=== PATIENT | male | born 1990 | race African-American/Black ===

== ENCOUNTER 2018-12-15 15:53 | Emergency (ER) | payer SELFPAY ==
[2018-12-15] MEDS: ONDANSETRON 4 MG INJ IV (16:37)
[2018-12-15 16:38] LABS: ADD MAN DIFF? NO
[2018-12-15] MEDS: LACTATED RINGER'S 1,000 ML IV (16:38)
[2018-12-15 16:42] LABS: BASOPHIL # 0.1 10^3/ul (0.0-0.1); BASOPHILS % 0.6 % (0.0-2.0); EOSINOPHILS # 0.1 10^3/ul (0.0-0.5); HEMATOCRIT 44.6 % (42.0-52.0); HEMOGLOBIN 14.8 g/dl (14.0-18.0); LYMPHOCYTES % 38.7 % (15.0-51.0); MEAN CORPUSCULAR HEMOGLOBIN 29.2 pg (29.0-33.0); MEAN CORPUSCULAR HGB CONC 33.2 g/dl (32.0-37.0); MONOCYTE # 0.7 10^3/ul (0.3-0.9); MONOCYTES % 8.4 % (0.0-11.0); PLATELET COUNT 224 10^3/UL (140-415); RED BLOOD COUNT 5.07 10^6/ul (4.70-6.10); RED CELL DISTRIBUTION WIDTH 12.2 % (11.5-14.5)
[2018-12-15 16:42] LABS: WHITE BLOOD COUNT 7.8 10^3/ul (4.8-10.8)
[2018-12-15 16:59] LABS: ALANINE AMINOTRANSFERASE 32 IU/L (13-69); ALBUMIN 4.4 g/dl (3.3-4.9); ALBUMIN/GLOBULIN RATIO 1.29; ALKALINE PHOSPHATASE 60 IU/L (42-121); ANION GAP 15 (5-13); ASPARTATE AMINO TRANSFERASE 35 IU/L (15-46); BILIRUBIN,INDIRECT 0.3 mg/dl (0-1.1); BILIRUBIN,TOTAL 0.3 mg/dl (0.2-1.3); BLOOD UREA NITROGEN 10 mg/dl (7-20); CALCIUM 8.5 mg/dl (8.4-10.2); CARBON DIOXIDE 23 mmol/L (21-31); CHLORIDE 109 mmol/L (97-110); CREATININE 0.92 mg/dl (0.61-1.24); Estimated GFR > 60 mL/min (>60); GLUCOSE 128 mg/dl (70-220); LIPASE 60 U/L (23-300); POTASSIUM 3.7 mmol/L (3.5-5.1); SODIUM 147 mmol/L (135-144); TOTAL PROTEIN 7.8 g/dl (6.1-8.1)
[2018-12-15 17:10] LABS: TROPONIN-I < 0.012 ng/ml (0.000-0.120)
== END 2018-12-15 20:46 | disposition home or self-care (01) ==
LOC: E/R 15:53
DX: T40.1X1A Poisoning by heroin, accidental (unintentional), initial encounter (principal); G93.40 Encephalopathy, unspecified; R10.9 Unspecified abdominal pain; R41.82 Altered mental status, unspecified; R40.2322 Coma scale, best motor response, extension, at arrival to emergency department
CPT/HCPCS: 36415; 70450; 71045; 80053; 80307; 83690; 84484; 85025; 93005; 96361; 96374; 99285-25